=== PATIENT | male | born 1995 | race Caucasian/White ===

== ENCOUNTER 2016-05-03 13:29 | Emergency (ER) | payer BC ==
[~2016-05-03] VITALS: Ht 177.8 cm; Wt 70.4 kg
[~2016-05-03 13:29] MED LIST: FAMO20TA11 PO; ONDA4TAB46 SL
[2016-05-03 13:33] VITALS: TEMP 37; Ht 177.8 cm; Wt 70.4 kg
[2016-05-03] MEDS ORDERED: LORAZEPAM 0.5 MG TAB PO STA (14:49)
[2016-05-03] MEDS ORDERED: SODIUM CHLORIDE 0.9% 1000ML 1,000 ML IV ONE ×2 (15:00)
[2016-05-03 15:15] LABS: BASO % 0.5 %; BASO ABS # 0.04 K/uL (0-0.2); COMPLETE YES; EOS % 0.4 %; HEMATOCRIT 47.2 % (42-52); IG% 0.1 %; LYMPH % 17.3 %; LYMPH ABS # 1.43 K/uL (1.2-3.4); MEAN CELL VOLUME 87.2 fL (80-100); MEAN CORPUSCULAR HEMOGLOBIN 32.2 pg (25-34); MEAN CORPUSCULAR HGB CONC 36.9 g/dl (32-36); MEAN PLATELET VOLUME 9.8 fL (7.4-10.4); MONO % 6.5 %; NEUT % 75.2 %; PLATELET COUNT 209 K/uL (130-400); RED BLOOD COUNT 5.41 M/uL (4.7-6.1); WHITE BLOOD COUNT 8.26 K/uL (4.8-10.8)
[2016-05-03 15:34] LABS: BUN/CREATININE RATIO 9.7 (10-20); CALCIUM 9.7 mg/dl (8.5-10.1); CREATININE 0.92 mg/dl (0.60-1.40); MAGNESIUM 2.2 mg/dl (1.8-2.4); POTASSIUM 3.5 mmol/L (3.5-5.1)
[2016-05-03 15:45] LABS: ALB/GLOB RATIO 1.3 (0.9-2); THYROID STIMULATING HORMONE 1.04 uIu/ml (0.300-4.500)
[2016-05-03 15:52] LABS: URINE APPEARANCE CLEAR (CLEAR); URINE BILIRUBIN NEG (NEG); URINE COLOR YELLOW; URINE NITRITE NEG (NEG); URINE PH >= 9.0 (4.5-7.5); URINE SPECIFIC GRAVITY 1.009 (1.000-1.030); UROBILINOGEN NEG (NEG); ZZUR CULT IF INDIC CLEAN CATCH NO
[2016-05-03 15:58] LABS: MANUAL MICROSCOPIC REQUIRED? NO; REVIEW REQ? NO
[2016-05-03 15:59] LABS: ACETAMINOPHEN < 2 ug/ml (10-30)
[2016-05-03 16:09] LABS: BENZODIAZEPINE, URINE NEG (NEG); COCAINE,URINE NEG (NEG); PHENCYCLIDINE, URINE NEG (NEG)
[2016-05-03] MEDS ORDERED: LXP/10 PO (16:56)
[2016-05-03 17:16] VITALS: BP 132/91; PULSE 85; O2SAT 97
--- NOTE | 2016-05-04 00:14 | EMERGENCY ROOM VISIT NOTE ---
History First contact with patient: 14:17 Chief Complaint: ANXIETY Stated Complaint: ANXIETY, PANIC, LOSS OF APPETITE, LIGHTHEADED History of Present Illness The patient is a 21 year old male who presents to the Emergency Room with complaints of worsening anxiety and depression symptoms over the past 3-4 weeks. The patient has had similar symptoms in the past, but not for about 3 months. He typically has cycles the last around 3 months where he feels very depressed, and then he returns to his normal baseline. The patient states over the past 24 hours he has had worsening symptoms. He has not had anything to eat in the past 2 days, which is causing him some lightheadedness and dizziness. The patient has tried recreational marijuana for relief of symptoms , however this has not aborted his symptoms this time. He previously has followed with psychology locally and psychiatry back home near [place]. He does not take medication on a daily basis for his symptoms. He has previously had small doses of Ativan, but he does not feel well while taking this medication. The patient does not have recent illness such as fever, chills , chest pain, chest tightness, or shortness of breath. He is experiencing decreased sleep, decreased interests, decreased energy, and decreased concentration. The patient evidently has regular thoughts of harming himself, but does not have a distinct plan. These thoughts are not worse than normal. Review of Systems More than 10 systems were reviewed and otherwise negative with the exception of history of present illness. Past Medical/Surgical History Medical Problems: (1) Stomach problems Family History FH: HTN (hypertension) Social History Smoking Status: Never Smoker Alcohol Use: occasionally Housing Status: lives with friends Current/Historical Medications Scheduled Escitalopram Oxalate (Lexapro), 1 TAB PO DAILY Allergies Coded Allergies: No Known Allergies (Unverified , 04/25/15) Physical Exam Vital Signs Date Time Temp Pulse Resp B/P Pulse Ox O2 Delivery O2 Flow Rate FiO2 05/03/16 17:16 85 18 132/91 97 05/03/16 15:39 75 18 143/95 97 Room Air 05/03/16 13:33 37.0 78 19 144/83 97 Room Air Pain Rating (0-10): 0 Physical Exam VITALS: Vitals are noted on the nurse's note and reviewed by myself. Vital signs stable. GENERAL: Well-developed, well-nourished, white male, who is in no acute distress and resting comfortably. Patient is cooperative with the examination. HEAD: Normocephalic atraumatic. EARS: External ear normal. External auditory canals clear, tympanic membranes pearly murray without erythema or effusion bilaterally. EYES: Pupils equal round and reactive to light and accommodation. Conjunctivae without injection, sclerae without icterus. Extraocular movements intact. NOSE: Patent, turbinates without inflammation or discharge. MOUTH: Mucous membranes moist. Tonsils are not enlarged. Pharynx without erythema, blood, or exudate. Uvula midline. Airway patent. NECK: Supple without nuchal rigidity. No lymphadenopathy. No thyromegaly. Cervical spine is nontender. HEART: Regular rate and rhythm without murmurs gallops or rubs. LUNGS: Clear to auscultation bilaterally without wheezes, rales or rhonchi. No retractions or accessory muscle use. ABDOMEN: Positive normal bowel sounds x 4. Soft, nontender, without masses or organomegaly. No guarding or rebound tenderness. MUSCULOSKELETAL: No muscle atrophy, erythema, or edema noted. Full range of motion without joint tenderness in all extremities. No tenderness to palpation. Normal gait. Strength 5/5 throughout. NEURO: Patient was alert and oriented to person place and time. CN II through XII grossly intact. Deep tendon reflexes 2+ throughout. No focal neurological deficits SKIN: The skin was without rashes, erythema, edema, or bruising. Capillary reflex less than 2 seconds. Medical Decision & Procedures Laboratory Results 05/03/16 15:03 Red Blood Count 5.41, Mean Corpuscular Volume 87.2, Mean Corpuscular Hemoglobin 32.2, Mean Corpuscular Hemoglobin Concent 36.9, Mean Platelet Volume 9.8, Neutrophils (%) (Auto) 75.2, Lymphocytes (%) (Auto) 17.3, Monocytes (%) (Auto) 6.5, Eosinophils (%) (Auto) 0.4, Basophils (%) (Auto) 0.5, Neutrophils # (Auto) 6.21, Lymphocytes # (Auto) 1.43, Monocytes # (Auto) 0.54, Eosinophils # (Auto) 0.03, Basophils # (Auto) 0.04 05/03/16 15:03 Test 05/03/16 15:03 05/03/16 15:45 White Blood Count 8.26 K/uL (4.8-10.8) Red Blood Count 5.41 M/uL (4.7-6.1) Hemoglobin 17.4 g/dL (14.0-18.0) Hematocrit 47.2 % (42-52) Mean Corpuscular Volume 87.2 fL (80-100) Mean Corpuscular Hemoglobin 32.2 pg (25-34) Mean Corpuscular Hemoglobin Concent 36.9 g/dl (32-36) Platelet Count 209 K/uL (130-400) Mean Platelet Volume 9.8 fL (7.4-10.4) Neutrophils (%) (Auto) 75.2 % Lymphocytes (%) (Auto) 17.3 % Monocytes (%) (Auto) 6.5 % Eosinophils (%) (Auto) 0.4 % Basophils (%) (Auto) 0.5 % Neutrophils # (Auto) 6.21 K/uL (1.4-6.5) Lymphocytes # (Auto) 1.43 K/uL (1.2-3.4) Monocytes # (Auto) 0.54 K/uL (0.11-0.59) Eosinophils # (Auto) 0.03 K/uL (0-0.5) Basophils # (Auto) 0.04 K/uL (0-0.2) RDW Standard Deviation 40.8 fL (36.4-46.3) RDW Coefficient of Variation 12.8 % (11.5-14.5) Immature Granulocyte % (Auto) 0.1 % Immature Granulocyte # (Auto) 0.01 K/uL (0.00-0.02) Anion Gap 11.0 mmol/L (3-11) Est Creatinine Clear Calc Drug Dose 124.3 ml/min Estimated GFR () 135.4 Estimated GFR (Non- 116.8 BUN/Creatinine Ratio 9.7 (10-20) Calcium Level 9.7 mg/dl (8.5-10.1) Magnesium Level 2.2 mg/dl (1.8-2.4) Total Bilirubin 0.8 mg/dl (0.2-1) Aspartate Amino Transf (AST/SGOT) 15 U/L (15-37) Alanine Aminotransferase (ALT/SGPT) 21 U/L (12-78) Alkaline Phosphatase 76 U/L (45-117) Total Protein 8.4 gm/dl (6.4-8.2) Albumin 4.7 gm/dl (3.4-5.0) Globulin 3.7 gm/dl (2.5-4.0) Albumin/Globulin Ratio 1.3 (0.9-2) Lipase 121 U/L (73-393) Thyroid Stimulating Hormone (TSH) 1.040 uIu/ml (0.300-4.500) Salicylates Level < 1.7 mg/dl (2.8-20) Acetaminophen Level < 2 ug/ml (10-30) Ethyl Alcohol mg/dL < 3.0 mg/dl (0-3) Urine Color YELLOW Urine Appearance CLEAR (CLEAR) Urine pH >= 9.0 (4.5-7.5) Urine Specific [place] 1.009 (1.000-1.030) Urine Protein NEG (NEG) Urine Glucose (UA) NEG (NEG) Urine Ketones 3+ (NEG) Urine Occult Blood NEG (NEG) Urine Nitrite NEG (NEG) Urine Bilirubin NEG (NEG) Urine Urobilinogen NEG (NEG) Urine Leukocyte Esterase NEG (NEG) Urine Opiates Screen NEG (NEG) Urine Methadone, Qualitative NEG (NEG) Urine Barbiturates NEG (NEG) Urine Phencyclidine (PCP) Level NEG (NEG) Ur Amphetamine/Methamphetamine NEG (NEG) MDMA (Ecstasy) Screen NEG (NEG) Urine Benzodiazepines Screen NEG (NEG) Urine Cocaine Metabolite NEG (NEG) Urine Marijuana (THC) POS (NEG) Medications Administered Medications (Trade) Dose Ordered Sig/Yazmin Route Start Time Stop Time Status Last Admin Dose Admin Sodium Chloride 1,000 ml @ 999 mls/hr Q1H1M ONCE IV 05/03/16 15:00 05/03/16 16:00 DC 05/03/16 15:41 999 MLS/HR Sodium Chloride (Nss 1000ml) 1,000 ml @ 999 mls/hr Q1H1M ONCE IV 05/03/16 15:00 05/03/16 16:00 DC 05/03/16 15:41 999 MLS/HR Lorazepam (Ativan Tab) 0.5 mg NOW STAT PO 05/03/16 14:49 05/03/16 14:52 DC 05/03/16 15:42 0.5 MG ED Course Physical exam and history were performed. Nursing notes and EMR were reviewed. Patient appears to have anxiety and depression symptoms that have been worsening over the past few weeks. He is now having more severe concerns as he no longer has an appetite has difficulty sleeping. On examination the patient is mildly anxious but certainly not toxic. IV access was established and labs were obtained. He was hydrated with 2 L normal saline here in the emergency department. The patient's blood work is as above and was reviewed. He does not have a significantly elevated white blood cell count, anemia, bandemia, or gross electrolyte imbalance. Lipase and transaminases are nondiagnostic. TSH is normal. Ethyl alcohol is negative as is his Tylenol and salicylate levels. Urine is without evidence of infection. He did have marijuana on his drug of abuse screen, which was expected. After a few hours the patient was felt to be medically cleared for psychiatric evaluation. This was performed by the ER psychiatric casey saw operator. The case was evidently discussed with the in-house psychiatrist, and the recommendation was for outpatient care. We were able to establish an appointment for the patient on May 28. Psychiatry also asked that we start the patient on Lexapro 10 mg daily, and this does appear quite reasonable. I had a quite lengthy discussion with the patient regarding initiation of Lexapro. The patient has not been on similar medicines in the past, and I explained the importance of monitoring for worsening of his symptoms, most specifically being homicidal or suicidal thoughts. The patient appears reasonable, and at this time does not appear to be an imminent harm to himself. I asked that he return to the emergency department if he has any worsening or concerning symptoms at all, and he was comfortable with this plan. The patient will be discharged home under the care of his significant other. He rated his discomfort a 0/10 at the time of departure. The chart was completed utilizing [employer] Voice Recognition Software. Grammatical errors, random word insertions, pronoun errors, and incomplete sentences are an occasional consequence of this system due to software limitations, ambient noise, and hardware issues. Any formal questions or concerns about the content, text, or information contained within the body of this dictation should be directly addressed to the provider for clarification. . Medical Decision Differential diagnosis: Etiologies such as mood disorder, infection, hypoglycemia, electrolyte abnormalities, cardiac sources, intracerebral event, toxicologic, neurologic, as well as others were entertained. Impression Primary Impression: Anxiety Departure Information Dispostion Home / Self-Care Condition GOOD Prescriptions Escitalopram Oxalate (Lexapro) 10 Mg Tab 1 TAB PO DAILY for 30 Days, #30 TAB 0 Refills Prov: Justino Llanos PA-C 05/03/16 Forms HOME CARE DOCUMENTATION FORM, IMPORTANT VISIT INFORMATION Patient Instructions My [facility] Additional Instructions You were seen and evaluated today on an emergency basis only. This is not a substitute for, or an effort to provide, complete comprehensive medical care. It is not possible to recognize and treat all injuries or illnesses in a single emergency department visit. For this reason it is recommended that you followup with your appointment scheduled on May 28 for ongoing care and evaluation. Please start Lexapro 10 mg daily. We recommend taking this medication in the morning. In rare cases people who take this medication will have worsening of their symptoms, including increased thoughts of self harm. If this occurs please discontinue the medication immediately and return to the emergency department. You are welcome to return to the emergency department anytime with new, worsening, or concerning symptoms.
[2016-05-04] MEDS ORDERED: ONDA4TAB10 SL (13:09)
== END 2016-05-03 17:18 | disposition home or self-care (01) ==
LOC: C.EDB 13:31 → C.EDC 17:18
DX: F41.9 Anxiety disorder, unspecified (principal)

== ENCOUNTER 2016-05-04 09:20 | Emergency (ER) | payer BC ==
[~2016-05-04] VITALS: Ht 177.8 cm; Wt 69.8 kg
[~2016-05-04 09:20] MED LIST changes: -FAMO20TA11 PO; +LXP/10 PO; -ONDA4TAB46 SL
[2016-05-04 09:23] VITALS: TEMP 37; Ht 177.8 cm; Wt 69.8 kg
--- NOTE | 2016-05-04 10:04 | EMERGENCY ROOM VISIT NOTE ---
History Report prepared by Maryan: Anni Barajas Under the Supervision of: Dr. Salvatore Cerda M.D. First contact with patient: 09:41 Chief Complaint: ANXIETY Stated Complaint: ANXIETY, ABD. PAIN, LIGHTHEADED History of Present Illness The patient is a 21 year old male who presents to the Emergency Room with complaints of persistent anxiety that worsened overnight. He currently rates his discomfort as an 8/10 in severity. The patient states that he was evaluated yesterday in the emergency department for his anxiety. He states that overnight his symptoms have worsened, noting that he did not sleep much. The patient additionally notes diffuse abdominal pain, diarrhea, nausea, and lightheadedness. He states that he has had this issue in the past, but denies ever having any scans done. The patient states that he had an endoscopy at that time and was found to have a small hiatal hernia. He states that he was recently started on Lexapro, noting that he had one dose last evening and one dose this morning. The patient denies any suicidal or homicidal ideation. Source of History: patient Onset: overnight Position: other (global) Symptom Intensity: 8/10 Quality: other (anxiety) Timing: worsening, other (persistent) Associated Symptoms: + abdominal pain, + diarrhea, + nausea Review of Systems See HPI for pertinent positives & negatives. A total of 10 systems reviewed and were otherwise negative. Past Medical & Surgical Medical Problems: (1) Stomach problems Family History FH: HTN (hypertension) Social History Smoking Status: Never Smoker Alcohol Use: occasionally Marital Status: single Housing Status: lives alone Occupation Status: employed Current/Historical Medications Scheduled Escitalopram Oxalate (Lexapro), 1 TAB PO DAILY Ondasetron Odt (Zofran Odt), 4 MG SL Q6H Allergies Coded Allergies: No Known Allergies (Unverified , 05/05/16) Physical Exam Vital Signs Date Time Temp Pulse Resp B/P Pulse Ox O2 Delivery O2 Flow Rate FiO2 05/04/16 13:55 141/97 05/04/16 12:03 136/87 05/04/16 10:28 98 18 136/86 98 Room Air 05/04/16 10:12 82 05/04/16 09:23 37.0 87 22 132/93 98 Room Air Physical Exam GENERAL: Patient is a healthy-appearing well-nourished HEAD: Normocephalic atraumatic EYES: Ocular movements intact pupils equal and react to light OROPHARYNX mucous membranes are moist no exudates present no erythema or edema present NECK: Supple no nuchal rigidity CHEST: Good equal expansion LUNGS: Clear and equal to auscultation CARDIAC: Normal S1 and S2 ABDOMEN: Soft nontender no guarding BACK: No CVA tenderness EXTREMITIES: No pain upon palpation normal muscle strength in all groups no clubbing cyanosis or edema NEURO: Patient is following commands is answering questions appropriately. Alert and oriented x3 Cranial Nerves 2-12 grossly intact PSYCH: Denies suicidal and homicidal ideation. Medical Decision & Procedures ER Provider Diagnostic Interpretation: X-ray results as stated below per interpretation by me and the radiologist: CHEST AND ABDOMEN 2 VIEWS HISTORY: Generalized abdominal pain. Diarrhea. COMPARISON: FINDINGS: The lungs are clear. The cardiomediastinal silhouette is within normal limits. There is no pneumoperitoneum or pneumatosis. The bowel gas pattern is unremarkable. No evidence for bowel obstruction. No pathologic calcifications. IMPRESSION: No acute cardiopulmonary process. No evidence for bowel obstruction. Electronically signed by: Flaco Duffy M.D. 05/04/2016 11:15 AM Dictated Date/Time: 05/04/2016 11:14 AM Laboratory Results 05/04/16 10:15 Red Blood Count 5.15, Mean Corpuscular Volume 86.6, Mean Corpuscular Hemoglobin 31.1, Mean Corpuscular Hemoglobin Concent 35.9, Mean Platelet Volume 9.4, Neutrophils (%) (Auto) 77.1, Lymphocytes (%) (Auto) 16.5, Monocytes (%) (Auto) 5.6, Eosinophils (%) (Auto) 0.3, Basophils (%) (Auto) 0.4, Neutrophils # (Auto) 5.59, Lymphocytes # (Auto) 1.20, Monocytes # (Auto) 0.41, Eosinophils # (Auto) 0.02, Basophils # (Auto) 0.03 05/04/16 10:15 Test 05/04/16 10:06 05/04/16 10:12 05/04/16 10:15 Urine Color YELLOW Urine Appearance CLEAR (CLEAR) Urine pH 7.5 (4.5-7.5) Urine Specific [place] 1.019 (1.000-1.030) Urine Protein NEG (NEG) Urine Glucose (UA) NEG (NEG) Urine Ketones 4+ (NEG) Urine Occult Blood NEG (NEG) Urine Nitrite NEG (NEG) Urine Bilirubin NEG (NEG) Urine Urobilinogen NEG (NEG) Urine Leukocyte Esterase NEG (NEG) Urine Opiates Screen NEG (NEG) Urine Methadone, Qualitative NEG (NEG) Urine Barbiturates NEG (NEG) Urine Phencyclidine (PCP) Level NEG (NEG) Ur Amphetamine/Methamphetamine NEG (NEG) MDMA (Ecstasy) Screen NEG (NEG) Urine Benzodiazepines Screen NEG (NEG) Urine Cocaine Metabolite NEG (NEG) Urine Marijuana (THC) POS (NEG) Urine Marijuana (THC Carboxy Acid) 1550 NG/ML (CUTOFF=5) Norovirus RNA (PCR) NOT DETECTED Bedside Glucose 101 mg/dl (70-99) White Blood Count 7.26 K/uL (4.8-10.8) Red Blood Count 5.15 M/uL (4.7-6.1) Hemoglobin 16.0 g/dL (14.0-18.0) Hematocrit 44.6 % (42-52) Mean Corpuscular Volume 86.6 fL (80-100) Mean Corpuscular Hemoglobin 31.1 pg (25-34) Mean Corpuscular Hemoglobin Concent 35.9 g/dl (32-36) Platelet Count 191 K/uL (130-400) Mean Platelet Volume 9.4 fL (7.4-10.4) Neutrophils (%) (Auto) 77.1 % Lymphocytes (%) (Auto) 16.5 % Monocytes (%) (Auto) 5.6 % Eosinophils (%) (Auto) 0.3 % Basophils (%) (Auto) 0.4 % Neutrophils # (Auto) 5.59 K/uL (1.4-6.5) Lymphocytes # (Auto) 1.20 K/uL (1.2-3.4) Monocytes # (Auto) 0.41 K/uL (0.11-0.59) Eosinophils # (Auto) 0.02 K/uL (0-0.5) Basophils # (Auto) 0.03 K/uL (0-0.2) RDW Standard Deviation 40.2 fL (36.4-46.3) RDW Coefficient of Variation 12.6 % (11.5-14.5) Immature Granulocyte % (Auto) 0.1 % Immature Granulocyte # (Auto) 0.01 K/uL (0.00-0.02) Anion Gap 10.0 mmol/L (3-11) Est Creatinine Clear Calc Drug Dose 124.6 ml/min Estimated GFR () 137.2 Estimated GFR (Non- 118.4 BUN/Creatinine Ratio 10.1 (10-20) Calcium Level 9.4 mg/dl (8.5-10.1) Total Bilirubin 0.9 mg/dl (0.2-1) Direct Bilirubin 0.2 mg/dl (0-0.2) Aspartate Amino Transf (AST/SGOT) 14 U/L (15-37) Alanine Aminotransferase (ALT/SGPT) 20 U/L (12-78) Alkaline Phosphatase 69 U/L (45-117) Total Protein 7.7 gm/dl (6.4-8.2) Albumin 4.4 gm/dl (3.4-5.0) Globulin 3.3 gm/dl (2.5-4.0) Albumin/Globulin Ratio 1.3 (0.9-2) Lipase 117 U/L (73-393) Thyroid Stimulating Hormone (TSH) 1.330 uIu/ml (0.300-4.500) Ethyl Alcohol mg/dL < 3.0 mg/dl (0-3) Date/Time Source Procedure Growth Status 05/04/16 10:06 Stool C.difficile Toxin B Gene (PCR) - Final No C. difficile toxin B gene detected Complete Labs reviewed by ED physician. Medications Administered Medications (Trade) Dose Ordered Sig/Yazmin Route Start Time Stop Time Status Last Admin Dose Admin Hydromorphone HCl (Dilaudid Inj) 1 mg NOW STAT IV 05/04/16 10:13 05/04/16 10:14 DC 05/04/16 10:26 1 MG Ondansetron HCl (Zofran Inj) 4 mg NOW STAT IV 05/04/16 10:13 05/04/16 10:14 DC 05/04/16 10:26 4 MG ED Course 0949: Past medical records reviewed. The patient was evaluated in room A5. A complete history and physical examination was performed. 1013: Ordered Zofran Inj 4 mg IV, Dilaudid Inj 1 mg IV. 1307: I reevaluated the patient and he is resting comfortably. I discussed the exam findings with him and I discussed the treatment plan. He verbalized complete understanding and agreement. He is ready to go home. Medical Decision Differential diagnosis: Etiologies such as appendicitis, diverticulitis, PUD, biliary pathology, UTI, pancreatitis, obstruction, mesenteric ischemia, aortic pathology, infections, inflammatory bowel disease, renal colic, mood disorder, infection, hypoglycemia , electrolyte abnormalities, cardiac sources, intracerebral event, toxicologic, neurologic, as well as others were entertained. This 21-year-old male who presents emergency department complaining of abdominal pain as well as anxiety. Patient reports he has been vomiting. Serial abdominal examinations were performed on the patient in the emergency department and no tended patient exhibit abdominal tenderness or surgical abdomen. Based on these findings the patient was sent for x-rays of his abdomen which did not show any acute process. In addition the patient has a normal CBC normal renal profile normal liver profile normal lipase. Based on the above medical workup, the patient was seen by case management who recommended follow-up with outpatient psychiatry. The patient is not suicidal or homicidal. I believe he can safely discharged home for follow-up. Patient was in agreement with the treatment plan. Impression Primary Impression: Anxiety Additional Impression: Gastritis Scribe Attestation The scribe's documentation has been prepared under my direction and personally reviewed by me in its entirety. I confirm that the note above accurately reflects all work, treatment, procedures, and medical decision making performed by me. Departure Information Dispostion Home / Self-Care Prescriptions Ondasetron Odt (ZOFRAN ODT) 4 Mg Tab 4 MG SL Q6H for Nausea, #6 TAB Prov: Salvatore Cerda MD 05/04/16 Referrals No Doctor, Assigned (PCP) Forms HOME CARE DOCUMENTATION FORM, IMPORTANT VISIT INFORMATION, School Instructions, Work Instructions Patient Instructions Anxiety Body Response, Anxiety Disorder Tx Meds, Anxiety Disorder Tx W Therapy, My [facility] Additional Instructions Follow up with [facility] You have been examined and treated today on an emergency basis only. This is not a substitute for, or an effort to provide, complete comprehensive medical care. It is impossible to recognize and treat all injuries or illnesses in a single emergency department visit. It is therefore important that you follow up closely with [facility]. Call as soon as possible for an appointment. Thank you for your time and consideration. I look forward to speaking with you again soon. Please don't hesitate to call us if you have any questions. Problem Qualifiers Additional Impression: Gastritis Gastritis type: unspecified gastritis Chronicity: acute Gastritis bleeding : without bleeding Qualified Codes: K29.00 - Acute gastritis without bleeding
[2016-05-04] MEDS ORDERED: HYDROmorphone INJ 1 MG/ML SYR IV STA (10:13)
[2016-05-04] MEDS ORDERED: ONDANSETRON INJ 2 MG/ML 2 ML VIAL IV STA (10:13)
[2016-05-04 10:28] VITALS: PULSE 98; O2SAT 98
[2016-05-04 10:29] LABS: BASO % 0.4 %; BASO ABS # 0.03 K/uL (0-0.2); COMPLETE YES; EOS % 0.3 %; HEMATOCRIT 44.6 % (42-52); IG% 0.1 %; LYMPH % 16.5 %; MEAN CELL VOLUME 86.6 fL (80-100); MEAN CORPUSCULAR HEMOGLOBIN 31.1 pg (25-34); MEAN CORPUSCULAR HGB CONC 35.9 g/dl (32-36); MEAN PLATELET VOLUME 9.4 fL (7.4-10.4); MONO % 5.6 %; NEUT % 77.1 %; PLATELET COUNT 191 K/uL (130-400); RED BLOOD COUNT 5.15 M/uL (4.7-6.1); WHITE BLOOD COUNT 7.26 K/uL (4.8-10.8)
[2016-05-04 10:37] LABS: URINE APPEARANCE CLEAR (CLEAR); URINE BILIRUBIN NEG (NEG); URINE COLOR YELLOW; URINE NITRITE NEG (NEG); URINE PH 7.5 (4.5-7.5); URINE SPECIFIC GRAVITY 1.019 (1.000-1.030); UROBILINOGEN NEG (NEG)
[2016-05-04 10:46] LABS: BUN/CREATININE RATIO 10.1 (10-20); CALCIUM 9.4 mg/dl (8.5-10.1); CREATININE 0.91 mg/dl (0.60-1.40); POTASSIUM 3.7 mmol/L (3.5-5.1)
[2016-05-04 10:56] LABS: MANUAL MICROSCOPIC REQUIRED? NO; REVIEW REQ? NO
[2016-05-04 10:57] LABS: ALB/GLOB RATIO 1.3 (0.9-2); THYROID STIMULATING HORMONE 1.33 uIu/ml (0.300-4.500)
--- NOTE | 2016-05-04 11:16 | DIAGNOSTIC IMAGING REPORT ---
CHEST AND ABDOMEN 2 VIEWS HISTORY: Generalized abdominal pain. Diarrhea. COMPARISON: FINDINGS: The lungs are clear. The cardiomediastinal silhouette is within normal limits. There is no pneumoperitoneum or pneumatosis. The bowel gas pattern is unremarkable. No evidence for bowel obstruction. No pathologic calcifications. IMPRESSION: No acute cardiopulmonary process. No evidence for bowel obstruction. Electronically signed by: Flaco Duffy M.D. 05/04/2016 11:15 AM Dictated Date/Time: 05/04/2016 11:14 AM
[2016-05-04 11:27] LABS: BENZODIAZEPINE, URINE NEG (NEG); COCAINE,URINE NEG (NEG); PHENCYCLIDINE, URINE NEG (NEG)
[2016-05-04] MEDS ORDERED: ONDA4TAB10 SL (13:09)
[2016-05-04 13:55] VITALS: BP 141/97
== END 2016-05-04 14:21 | disposition home or self-care (01) ==
LOC: C.EDB 09:21 → C.EDA 14:21
DX: F41.9 Anxiety disorder, unspecified (principal); K29.00 Acute gastritis without bleeding; Z79.899 Other long term (current) drug therapy

== ENCOUNTER 2016-05-05 08:17 | Emergency (ER) | payer BC ==
[~2016-05-05] VITALS: Ht 177.8 cm; Wt 69.9 kg
[~2016-05-05 08:17] MED LIST changes: +ONDA4TAB10 SL
[2016-05-05 08:19] VITALS: Ht 177.8 cm; Wt 69.9 kg
[2016-05-05] MEDS ORDERED: LORAZEPAM 1 MG TAB SL STA (08:49)
--- NOTE | 2016-05-05 14:40 | EMERGENCY ROOM VISIT NOTE ---
History Report prepared by Maryan: Ángela Beach Under the Supervision of: Dr. Ochoa López M.D. First contact with patient: 08:40 Chief Complaint: MENTAL HEALTH EVALUATION Stated Complaint: ANXIETY,STOMACH PAIN,THOUGHTS OF SELF HARM History of Present Illness The patient is a 21 year old male who presents to the Emergency Room with complaints of persistent anxiety worsening starting a few days RN IV THERAPY. The patient states that today is his third visit to the ED in the last three days. The patient states that he does not know what causes his anxiety but he thinks the thought of food increases his anxiety. He denies any recent financial, relationship or family issues. He states that he is having suicidal ideations about driving his car off the road. He states he has never attempted suicide in the past but states he does have a history of cutting. The patient states that he has had some diarrhea recently along with diaphoresis. The patient states that he has not used alcohol recently but admits to smoking marijuana last night. The patient states he started a prescription for Lexapro this week. Source of History: patient Onset: few days RN IV THERAPY Position: other (global) Timing: worsening Associated Symptoms: + diaphoresis, + diarrhea Note: Associated symptoms: suicidal ideation of driving car off road. Review of Systems See HPI for pertinent positives & negatives. A total of 10 systems reviewed and were otherwise negative. Past Medical & Surgical Medical Problems: (1) Stomach problems Family History FH: HTN (hypertension) Social History Smoking Status: Never Smoker Alcohol Use: occasionally Marital Status: single Housing Status: lives alone Occupation Status: employed Current/Historical Medications Scheduled Escitalopram Oxalate (Lexapro), 1 TAB PO DAILY Ondasetron Odt (Zofran Odt), 4 MG SL Q6H Allergies Coded Allergies: No Known Allergies (Unverified , 05/05/16) Physical Exam Vital Signs Date Time Temp Pulse Resp B/P Pulse Ox O2 Delivery O2 Flow Rate FiO2 05/05/16 08:19 37.0 90 19 140/96 98 Room Air Physical Exam GENERAL: Patient is in no acute distress. HEENT: No acute trauma, normocephalic atraumatic, mucous membranes moist, no nasal congestion, no scleral icterus. NECK: No stridor, no adenopathy, no meningismus, trachea is midline. LUNGS: Clear to auscultation bilaterally, no wheeze, no rhonchi, breath sounds equal. HEART: Without murmurs gallops or rubs, regular rate and rhythm. ABDOMEN: Soft, nontender, bowel sounds positive, no hernias, no peritonitis. EXTREMITIES: No cyanosis or edema, full range of motion of all the joints without pain or difficulty, no signs for acute trauma. NEUROLOGIC: Oriented x 3, no acute motor or sensory deficits, no focal weakness. SKIN: No rash, no jaundice, no diaphoresis. PSYCH: Cooperative, voluntary, admits to anxiety and suicidal ideation with a plan to crash his car. Medical Decision & Procedures Medications Administered Medications (Trade) Dose Ordered Sig/Yazmin Route Start Time Stop Time Status Last Admin Dose Admin Lorazepam (Ativan Tab) 1 mg NOW STAT SL 05/05/16 08:49 05/05/16 08:50 DC 05/05/16 09:06 1 MG ED Course 0847: The patient was evaluated in room A5. A complete history and physical exam was performed. 0849: Ordered Lorazepam 1 mg SL. 1235: The patient has been placed in [facility] and will go there to receive more evaluation and treatment. Medical Decision The patient is a 21 year old male who presents to the ED with complaints of anxiety. Differential diagnoses considered include drug and alcohol abuse, eating disorder, depression, anxiety, electrolyte imbalance, suicidal ideation. The patient presents with anxiety and some suicidal ideation. He had been here yesterday and the day before with similar complaints. Laboratory testing from yesterday showed no evidence for leukocytosis or anemia. There was no significant electrolyte abnormality, kidney failure, hepatitis. The patient was in a euthyroid state. Urine tox showed marijuana only. His alcohol yesterday was undetectable. The patient presents with worsening anxiety and now some suicidal ideation. He did receive oral Ativan here with a good result. He has been cooperative. He is voluntary. I do believe he is medically clear for a psychiatric evaluation. The patient was seen by psychiatry and is being transferred to [facility]. Orders for the transfer have been completed. Impression Primary Impression: Suicidal ideation Scribe Attestation The scribe's documentation has been prepared under my direction and personally reviewed by me in its entirety. I confirm that the note above accurately reflects all work, treatment, procedures, and medical decision making performed by me. Departure Information Dispostion Mental [facility] ([facility]) Referrals No Doctor, Assigned (PCP) Patient Instructions My [facility]
[2016-05-05 17:05] VITALS: BP 140/96; PULSE 86; O2SAT 94
== END 2016-05-05 16:39 | disposition short-term general hospital (02) ==
LOC: C.EDB 08:18 → C.EDA 16:39
DX: R45.851 Suicidal ideations (principal); Z82.49 Family history of ischemic heart disease and other diseases of the circulatory system

== ENCOUNTER → 2016-05-29 | Outpatient (CLI) | payer BC ==
[2016-05-29 09:35] LABS: BASO % 0.5 %; BASO ABS # 0.03 K/uL (0-0.2); COMPLETE YES; HEMATOCRIT 46.9 % (42-52); LYMPH % 38.3 %; LYMPH ABS # 2.15 K/uL (1.2-3.4); MEAN CELL VOLUME 89.8 fL (80-100); MEAN CORPUSCULAR HEMOGLOBIN 31.6 pg (25-34); MEAN CORPUSCULAR HGB CONC 35.2 g/dl (32-36); MEAN PLATELET VOLUME 9.7 fL (7.4-10.4); MONO % 9.8 %; NEUT % 48.4 %; PLATELET COUNT 215 K/uL (130-400); RED BLOOD COUNT 5.22 M/uL (4.7-6.1); WHITE BLOOD COUNT 5.62 K/uL (4.8-10.8)
[2016-05-29 09:52] LABS: ALT/SGPT 29 U/L (12-78); BLOOD UREA NITROGEN 13 mg/dl (7-18); BUN/CREATININE RATIO 13.7 (10-20); CALCIUM 9.4 mg/dl (8.5-10.1); CARBON DIOXIDE 30 mmol/L (21-32); CHLORIDE 103 mmol/L (98-107); CHOLESTEROL 185 mg/dl (0-200); CREATININE 0.97 mg/dl (0.60-1.40); GLUCOSE 97 mg/dl (70-99); POTASSIUM 4.4 mmol/L (3.5-5.1); SODIUM 142 mmol/L (136-145)
[2016-05-29 10:01] LABS: ALB/GLOB RATIO 1.2 (0.9-2); ALKALINE PHOSPHATASE 62 U/L (45-117); AST/SGOT 15 U/L (15-37); CHOLESTEROL/HDL RATIO 2.3; HDL CHOLESTEROL 82 mg/dl; LDL CHOLESTEROL CALCULATED 90 mg/dl; TRIGLYCERIDES 67 mg/dl (0-150); VERY LOW DENSITY LIPOPROT CALC 13 mg/dl
[2016-05-29 10:07] LABS: ESTIMATED AVERAGE GLUCOSE 105 mg/dl; HA1C FLAG Normal (Normal)
== END | disposition home or self-care (01) ==
LOC: C.LAB 07:23
PROVIDERS: ATTEND Urology
DX: Z79.899 Other long term (current) drug therapy (principal)